=== PATIENT | male | born 1950 | race Caucasian/White ===

== ENCOUNTER 2017-07-22 10:08 | Outpatient (CLI) | payer MEDICARE ==
[2017-07-22 10:40] LABS: Bilirubin Negative (Negative); Blood, Urine Negative (Negative); Glucose, Urine (Dipstick) Negative (Negative); Ketone, Urine Negative (Negative); Nitrite Negative (Negative); Protein, Urine (Dipstick) Negative (Neg-Trace)
[2017-07-22 10:45] LABS: Bacteria/HPF None Seen HPF (None Seen); Hyaline Casts/LPF 0-3 HYALINE CAST LPF (0-3 Hyaline); RBC/HPF 0-3 HPF (0-3); Squamous Epithelial None Seen HPF (0-3); WBC/HPF 0-3 HPF (0-3)
[2017-07-22 11:00] LABS: Anion Gap 10 mmol/L (10-20); BUN (Urea Nitrogen) 17 mg/dL (8.4-25.7); Calc. Creatinine Clearance 0 mL/min (70-130); Calcium 9.6 mg/dL (7.8-10.44); Carbon Dioxide 29 mmol/L (23-31); Chloride 106 mmol/L (98-107); Estimated GFR-MDRD 90
[2017-07-22] MEDS ORDERED: Iopamidol 370 76% 100 ML VIAL ONE (16:31)
--- NOTE | 2017-07-22 19:42 | CT ---
CT ABDOMEN AND PELVIS WITH AND WITHOUT CONTRAST: Technique: Multiple axial tomograms were obtained through the abdomen and pelvis pre and post IV con trast. Post contrast images were obtained in a portal venous phase and delayed venous phase followin g a urographic protocol. History: Follow up removal of bladder tumor via cysto. Neoplasm of bladder. Comparison: 01-21-17 FINDINGS: Lung bases are clear. Liver, spleen, and pancreas appear unremarkable. Adrenal glands appear normal. 5.5 cm cystic lesion from inferior pole of the left kidney is again seen and is unchanged. Kidneys s how symmetric function and enhancement. No evidence of hydronephrosis. No urinary tract calculus. Ur eters unremarkable. The bladder is contracted and not well evaluated. On the delayed sequence there is some contrast in the bladder. No filling defects seen. Mild prostatic indentation on the floor of the bladder. Small bowel loops appear normal. The aorta is normal caliber. No adenopathy. Degenerative changes in the spine. Small focal sclerotic lesion in the left superior acetabulum is stable. IMPRESSION: 1. Left renal cyst is stable. 2. CT abdomen and pelvis otherwise unremarkable with no interval change from prior exam. POS: BRIAN
== END 2017-07-22 10:09 | disposition home or self-care (01) ==
LOC: CT 10:08
PROVIDERS: ATTEND Urology
DX: Z12.5 Encounter for screening for malignant neoplasm of prostate (principal); C67.0 Malignant neoplasm of trigone of bladder; N28.1 Cyst of kidney, acquired
CPT/HCPCS: 74178; 80048; 81001; 88112; 88121; G0103; 36415

== ENCOUNTER 2017-10-12 16:17 | Inpatient (IN) | payer MEDICARE ==
[2017-10-12 16:47] LABS: #Lymphocytes 1.6 thou/uL (1.20-3.40); #Monocytes 0.9 thou/uL (0.11-0.59); #Neutrophils 13.8 thou/uL (1.40-6.50); %Basophils 0.1 % (0.0-1.0); %Eosinophils 0.2 % (0.0-10.0); %Lymphocytes 9.6 % (21.0-51.0); %Monocytes 5.4 % (0.0-10.0); %Neutrophils 84.8 % (42.0-75.0); Hemoglobin 15.8 g/dL (14.0-18.0); Mean Corpuscular Hemoglobin 32.3 pg (27.0-31.0); Mean Corpuscular Volume 95.2 fl (80.0-94.0); Mean Platelet Volume 7.7 fL (7.4-10.4); Platelet Count 238 thou/uL (130-400); Red Blood Cell (RBC) Count 4.89 mill/uL (4.70-6.10); White Blood Cell (WBC) Count 16.3 thou/uL (4.8-10.8)
[2017-10-12 17:09] LABS: Bilirubin Negative (Negative); Blood, Urine Negative (Negative); Clarity CLEAR (Clear); Glucose, Urine (Dipstick) Negative (Negative); Leukocyte Negative (Negative); Nitrite Negative (Negative); Protein, Urine (Dipstick) 30 mg/dL (Neg-Trace); Specific Gravity, Urine 1.018 (1.002-1.036); pH, Urine 7.5 (5.0-9.0)
[2017-10-12 17:09] LABS: ALT (SGPT) 26 U/L (8-55); AST (SGOT) 18 U/L (5-34); Albumin 4.6 g/dL (3.4-4.8); Alkaline Phosphatase 70 U/L (40-150); Anion Gap 13 mmol/L (10-20); BUN (Urea Nitrogen) 12 mg/dL (8.4-25.7); Bilirubin, Total 1.1 mg/dL (0.2-1.2); Calc. Creatinine Clearance 0 mL/min (70-130); Calcium 9.9 mg/dL (7.8-10.44); Carbon Dioxide 27 mmol/L (23-31); Chloride 100 mmol/L (98-107); Estimated GFR-MDRD 71; Globulin 3.2 g/dL (2.4-3.5); Glucose 122 mg/dL (80-115); Potassium 3.7 mmol/L (3.5-5.1); Protein, Total 7.8 g/dL (5.8-8.1); Sodium 136 mmol/L (136-145)
[2017-10-12 17:11] LABS: Bacteria/HPF None Seen HPF (None Seen); Hyaline Casts/LPF 0-3 HYALINE CAST LPF (0-3 Hyaline); RBC/HPF 0-3 HPF (0-3); Squamous Epithelial None Seen HPF (0-3); WBC/HPF 0-3 HPF (0-3)
[2017-10-13] MEDS ORDERED: Dextrose 5% in Water 1,000 ML IV PRN (00:19)
[2017-10-13] MEDS ORDERED: Dextrose 50% Abboject 50 ML SYRINGE SLOW IVP PRN (00:19)
[2017-10-13] MEDS ORDERED: hydrALAZINE 20 MG/ML VIAL SLOW IVP PRN (00:19)
[2017-10-13] MEDS ORDERED: Ondansetron HCl/PF 4 MG/2 ML Vial IVP PRN ×2 (00:19→00:53)
[2017-10-13] MEDS ORDERED: Promethazine HCl 25 MG/ML VIAL IM PRN ×2 (00:19→00:53)
[2017-10-13] MEDS ORDERED: Morphine 4 MG/ML VIAL SLOW IVP PRN (00:19)
[2017-10-13] MEDS ORDERED: traMADol HCl 50 MG TAB PO PRN ×2 (00:23)
[2017-10-13] MEDS ORDERED: Amlodipine 10 MG TAB PO SCH (00:30)
[2017-10-13] MEDS ORDERED: Ketorolac Tromethamine 30 MG/ML VIAL IVP SCH (00:45)
[2017-10-13] MEDS ORDERED: Promethazine HCl 25 MG/ML VIAL SLOW IVP PRN (00:53)
--- NOTE | 2017-10-13 01:23 | OP ---
DATE OF OPERATION: 10/12/2017 PREOPERATIVE DIAGNOSIS: Acute appendicitis. POSTOPERATIVE DIAGNOSIS: Acute gangrenous appendicitis with perforation and periappendiceal abscess. SURGERY PERFORMED: Laparoscopic appendectomy and drainage of periappendiceal abscess. SURGEON: Inder Alcantar DO ANESTHESIA: General endotracheal. ESTIMATED BLOOD LOSS: 20 mL. FLUIDS GIVEN: 1000 mL crystalloids. SPONGE AND INSTRUMENT COUNT: Certified as correct x2. COMPLICATIONS: None apparent at the time of operation. INDICATIONS FOR OPERATION: This is a 67-year-old man presented with 2-day history of abdom inal pain. Clinical and radiographic examination was consistent with acute appendicitis, for which t he patient was brought to the operating room for appendectomy. Findings are consistent with acute gangrenous retrocecal appendicitis blown off at the base. There i s appendicolith at the base of the appendix. DESCRIPTION OF OPERATION: Informed consent was obtained from the patient who was brought to the oper ating room and placed in supine position. Following general anesthesia, abdomen was sterilely preppe d and draped in the usual fashion. The skin below the umbilicus was infiltrated with 0.25% Marcaine with epinephrine. A small curvilinear infraumbilical incision was made using an 11 scalpel. Umbilic al stalk was grasped with an Sanjay and elevated. Veress needle was inserted through the incision an d placed in the peritoneal cavity through which the abdomen was insufflated with 3 liters of CO2 gas. Intraabdominal pressure noted at 2 mmHg. Following abdominal insufflation, Veress needle was remov ed and a 5-mm trocar was inserted through the incision and placed in the peritoneal cavity using the Visiport under laparoscopy. Laparoscopy confirmed proper placement of the port and no injuries to un derlying structures. Additional laparoscopy revealed the right lower quadrant completely encased by omental adhesions. Under direct laparoscopy, a 5-mm suprapubic and 12-mm left lower quadrant ports w ere placed after the overlying skin was infiltrated with 0.25% Marcaine with epinephrine and appropri ate incisions made. The patient was placed in a Trendelenburg position, rotated to his left. I introduced the [place] d issector with cautery to take down omental adhesions from the right lower quadrant. Using a Prestige grasper, additional omental adhesions were bluntly taken down off the right lateral gutter to expose the retrocecal appendix that is completely blown off the base. Two fecaliths were lying adjacent to the appendiceal stump. There is periappendiceal abscess, which was evacuated with suction. I then introduced the Endo [place] forceps through the suprapubic port site grasping the appendix, which was elevated. I used the LigaSure device to serially divide the mesoappendix. I was then able to grasp the appendiceal stump, dividing this at the appendicocecal junction using Endo-ROMANA. The gangrenous appendix was delivered out of the abdominal cavity using an EndoCatch. The operative site was copiously irrigated clear with saline solution noting good hemostasis in place. Finding no other pathology, laparoscopy was terminated. Fascia of the left lower quadrant port site was closed using 0 Vicryl suture and Endo closure device under laparoscopy. The abdomen was desufflated. All p orts and instruments removed and accounted for. Skin incisions were closed using 4-0 Monocryl suture in subcuticular fashion. Dermabond was applied over the incisions. The patient tolerated the opera tion without any apparent complications and was returned to the recovery room in satisfactory conditi on.
--- NOTE | 2017-10-13 01:28 | HP ---
DATE OF ADMISSION: 10/12/2017 HISTORY OF PRESENT ILLNESS: This is a 67-year-old man who presented to [facility] in [facility] with insidious onset periumbilical abdominal pain, which started two days ago. The pa in is now right lower quadrant. The patient reports multiple episodes of nausea, but no palomo emesis . He denies any diarrhea. He endorses fever, maximum temperature today was 101, this morning. He i s currently anorexic. PAST MEDICAL HISTORY: Significant for bladder carcinoma, essential hypertension, benign prostatic hy pertrophy. SURGICAL HISTORY: Pertinent for transurethral bladder resection. SOCIAL HISTORY: He is , lives at home with his . He denies any cigarette smoking, ethano l or illicit drug abuse. FAMILY HISTORY: Noncontributory for this patient's age. PREHOSPITAL MEDICATIONS: Include meloxicam, amlodipine 10 mg p.o. daily, chlorothiazide 250 mg p.o. daily, gabapentin 900 mg p.o. b.i.d., aspirin 81 mg p.o. daily, Flomax 0.4 mg p.o. daily. ALLERGIES: The patient denies any known drug allergies. REVIEW OF SYSTEMS: Ten point review of systems is essentially unremarkable except for as stated in p ast medical history and chief complaint. PHYSICAL EXAMINATION: GENERAL: This reveals 67-year-old normally developed man, who is otherwise coherent and interactive and appears stated age. The patient is alert and oriented x3, appears to be in no acute distress at the time of my evaluation. VITAL SIGNS: Include blood pressure 141/70, pulse 88, respiration rate 18, temperature 98.5 degrees Fahrenheit. Oxygen saturation 95% on room air. HEENT: Reveals normocephalic and atraumatic. Pupils equal, round, and reactive to light and accommo dation. He has no jugular venous distention noted. HEART: Reveals regular rate and rhythm, no murmurs or gallops auscultated. LUNGS: Clear to auscultation bilaterally. Breathing is regular and unlabored. ABDOMEN: Soft and moderately obese. He has right lower quadrant tenderness at McBurney's. He has a positive Rovsing sign. Liver and spleen are nonpalpable below costal margins. EXTREMITIES: Reveals 2+ radial and pedal pulses bilaterally. No ankle edema is present. NEUROLOGIC: Cranial nerves II-XII grossly intact bilaterally. No focal deficits present. PERTINENT LABORATORY FINDINGS TODAY: Includes CBC with 16,300 white blood cells, hemoglobin 15.8, he matocrit is 46.6, platelet count 238,000. Metabolic profile: Sodium 136, potassium 3.7, chloride is 100, bicarbonate 27, BUN 12, creatinine is 1.04, glucose 122, AST and ALT normal at 18 and 26 respectively. Urinalysis was essentially unremar kable. I have personally reviewed CT scan of the abdomen and pelvis, which is remarkable for dilated appendix with periappendiceal fat stranding and appendicolith. There is minimum free fluid noted. No pneumoperitoneum is evident. IMPRESSION: Acute appendicitis. PLAN: Laparoscopic appendectomy. I have advised the patient of the above findings and plan. This i nformation was given to the patient in the presence of his and 2 adult daughters as well as his nurse. I have informed the patient of the risks and benefits of the proposed surgery. Risks include , but not limited to bleeding, infection, injury to bowel or surrounding structures. The patient ind icates understanding of information I have provided him today. I have answered his questions. He gaines s given consent for this admission and surgical intervention.
[2017-10-13] MEDS: Sodium Chloride 0.9% 1,000 ML IV SCH ×2 (02:10→12:42)
[2017-10-13 02:22] VITALS: BMI 33.7
[2017-10-13] MEDS: Piperacillin/Tazobactam 3.375 GM in Sodium Chloride 0.9% 100 ML IVPB SCH ×2 (03:18→10:05)
[2017-10-13] MEDS: Acetaminophen 500 MG TAB PO SCH ×2 (06:58→13:00)
[2017-10-13] MEDS: Ketorolac Tromethamine 30 MG/ML VIAL IVP SCH ×2 (06:58→13:00)
[2017-10-13] MEDS ORDERED: Famotidine/PF 20 mg/2ml Vial SLOW IVP SCH (09:00)
[2017-10-13] MEDS ORDERED: Enoxaparin Sodium 40 MG/0.4 ML SYRINGE SC SCH (09:00)
[2017-10-13] MEDS ORDERED: Famotidine 20 MG TAB PO SCH (09:00)
[2017-10-13 13:33] VITALS: BP 114/72; TEMP 97.3
[2017-10-13] MEDS ORDERED: Amoxicillin/Potassium Clav 875 MG TAB PO SCH (21:00)
--- NOTE | 2017-10-14 00:10 | DIS ---
DATE OF ADMISSION: 10/13/2017 DATE OF DISCHARGE: 10/13/2017 ADMITTING AND DISCHARGE PHYSICIAN: Dr. Inder Alcantar. ADMITTING AND DISCHARGE DIAGNOSIS: Acute appendicitis. OPERATIONS PERFORMED: Laparoscopic appendectomy on 10/12/2017 by Katharine. Please see separate dictati on for operative report. HISTORY AND HOSPITAL COURSE: A 67-year-old man presented with right lower quadrant abdominal pain. Clinical and radiographic examination was consistent with acute appendicitis, for which patient under went an uneventful laparoscopic appendectomy. Following surgery, the patient was admitted to the [facility], where he had an uneventful stay. Postop day #1 today, he ambulates with minimum difficulty. His pain is adequately controlled on oral analgesics. He is tolerating diet, having normal bowel and urinary function. Incisional scars lolis in intact, clean, and dry. He has no gross peritoneal signs on examination. He has remained hemodyn amically stable and afebrile through this hospitalization. The patient will be discharged home today with the following instructions: 1. He sees me in the Surgery Clinic in 2 weeks. 2. He has given a prescription for tramadol 50 mg #20 to be taken 1-2 p.o. q.6 hours p.r.n. pain may alternate this with extra-strength Tylenol 1000 mg p.o. q.6 hours p.r.n. pain. 3. He is instructed to avoid weightlifting in excess of 20 pounds until he has been released by me. 4. He has given a prescription for Augmentin 875 mg #8 to be taken 1 p.o. b.i.d. x4 days. 5. Patient indicates understanding of information given. I have answered his questions. 6. He has expressed deep gratitude for the care rendered to him during this hospitalization and surg cristian.
== END 2017-10-13 16:15 | disposition home or self-care (01) | DRG 340 ==
LOC: ERS 16:17 → SURG A 10-13 00:19
PROVIDERS: ADMIT Surgery; ATTEND Surgery
PROC: 0DTJ4ZZ Resection of Appendix, Percutaneous Endoscopic Approach (ICD-10-PCS; principal; 2017-10-12)
PROC: 0D9J4ZZ Drainage of Appendix, Percutaneous Endoscopic Approach (ICD-10-PCS; 2017-10-12)
DX: K35.3 Acute appendicitis with localized peritonitis (principal); I10 Essential (primary) hypertension; R63.0 Anorexia; Z85.51 Personal history of malignant neoplasm of bladder; K38.1 Appendicular concretions
CPT/HCPCS: 36415; 74022; 74177; 80053; 81003; 81015; 85025; 88304; 96361; 96365; 96375; 96376; J1100; J1650; J1885; J2001; J2270; J2405; J2543; J2704; J3010; J7050

== ENCOUNTER 2017-10-14 12:36 | Emergency (ER) | payer MEDICARE ==
[2017-10-14 13:59] LABS: #Basophils 0.1 thou/uL (0.0-0.2); #Lymphocytes 1.9 thou/uL (1.20-3.40); #Monocytes 0.9 thou/uL (0.11-0.59); %Basophils 0.3 % (0.0-1.0); %Lymphocytes 10.1 % (21.0-51.0); %Monocytes 4.9 % (0.0-10.0); %Neutrophils 84.7 % (42.0-75.0); Hemoglobin 14.6 g/dL (14.0-18.0); Mean Corpuscular Hemoglobin 31.2 pg (27.0-31.0); Mean Corpuscular Volume 91.7 fl (80.0-94.0); Mean Platelet Volume 8.5 fL (7.4-10.4); Platelet Count 235 thou/uL (130-400); RBC Distribution Width 11.4 % (11.5-14.5); Red Blood Cell (RBC) Count 4.68 mill/uL (4.70-6.10); White Blood Cell (WBC) Count 18.9 thou/uL (4.8-10.8)
--- NOTE | 2017-10-14 14:08 | RAD ---
FRONTAL RADIOGRAPH CHEST UPRIGHT AND FRONTAL RADIOGRAPHS OF ABDOMEN: Date: 10-14-17 Comparison: None. History: Recent appendectomy on Saturday. Constipation and pain. FINDINGS: Frontal radiograph chest as well as supine and upright imaging of abdomen/pelvis provided. Frontal radiograph chest demonstrates no pneumothorax, pleural fluid, focal consolidation or alveolar edema. Heart and mediastinal contours are within normal limits. Upright imaging demonstrates no free intraperitoneal air. There are air fluid levels within the colon which appear somewhat distended. There appears to be resi dual hyperdense material within the colon including the ascending colon and the descending colon whic h could signify enema material or possibly previously ingested oral contrast media. There are fluid filled and gas filled prominent small bowel loops as well, with air fluid levels on u pright imaging. Dilated gas filled loops of small bowel within the mid left abdomen measure up to 4.7 cm. IMPRESSION: There is distention of large and small bowel which suggest ileus. Developing small bowel obstruction cannot be fully excluded but is felt less likely. There is prominent, somewhat high density material within the ascending colon, suggesting dense stool mixed with hyperdense material which may be on the basis of enema material or previously ingested contrast media. Follow up imaging is suggested. POS: BRIAN
== END 2017-10-14 14:25 | disposition home or self-care (01) ==
LOC: SCSER 12:36
DX: K59.00 Constipation, unspecified (principal); G89.29 Other chronic pain; I10 Essential (primary) hypertension
CPT/HCPCS: 36415; 74022; 85025

== ENCOUNTER 2017-10-19 09:51 | Inpatient (IN) | payer MEDICARE ==
[2017-10-19 10:24] LABS: #Basophils 0.1 thou/uL (0.0-0.2); #Eosinphils 0.1 thou/uL (0.0-0.7); #Lymphocytes 1.5 thou/uL (1.20-3.40); #Monocytes 1.2 thou/uL (0.11-0.59); #Neutrophils 11.8 thou/uL (1.40-6.50); %Basophils 0.6 % (0.0-1.0); %Eosinophils 0.7 % (0.0-10.0); %Lymphocytes 10.4 % (21.0-51.0); %Neutrophils 80.4 % (42.0-75.0); Hemoglobin 14.1 g/dL (14.0-18.0); Mean Corpuscular HGB CONC 34.6 g/dL (32.0-36.0); Mean Corpuscular Hemoglobin 31.1 pg (27.0-31.0); Mean Corpuscular Volume 89.8 fl (80.0-94.0); Mean Platelet Volume 6.4 fL (7.4-10.4); Platelet Count 374 thou/uL (130-400); RBC Distribution Width 11.1 % (11.5-14.5); Red Blood Cell (RBC) Count 4.53 mill/uL (4.70-6.10); White Blood Cell (WBC) Count 14.6 thou/uL (4.8-10.8)
[2017-10-19 10:35] LABS: ALT (SGPT) 43 U/L (8-55); AST (SGOT) 25 U/L (5-34); Albumin 3.4 g/dL (3.4-4.8); Alkaline Phosphatase 76 U/L (40-150); Anion Gap 16 mmol/L (10-20); BUN (Urea Nitrogen) 13 mg/dL (8.4-25.7); Bilirubin, Total 0.6 mg/dL (0.2-1.2); Calc. Creatinine Clearance 0 mL/min (70-130); Calcium 9.2 mg/dL (7.8-10.44); Carbon Dioxide 23 mmol/L (23-31); Chloride 103 mmol/L (98-107); Estimated GFR-MDRD 85; Globulin 3.3 g/dL (2.4-3.5); Glucose 111 mg/dL (80-115); Lipase 19 U/L (8-78); Potassium 3.9 mmol/L (3.5-5.1); Protein, Total 6.7 g/dL (5.8-8.1); Sodium 138 mmol/L (136-145)
[2017-10-19 11:09] LABS: Bilirubin Negative (Negative); Blood, Urine Negative (Negative); Clarity Clear (Clear); Glucose, Urine (Dipstick) Negative (Negative); Leukocyte Negative (Negative); Nitrite Negative (Negative); Protein, Urine (Dipstick) Negative (Neg-Trace); Urobilinogen 0.2 mg/dL (0.2-1.0); pH, Urine 5.5 (5.0-9.0)
--- NOTE | 2017-10-19 11:13 | CT ---
CT OF ABDOMEN AND PELVIS: Date: 10/19/17 COMPARISON: 10/12/17. HISTORY: Recent surgery for perforated appendicitis, constipation. TECHNIQUE: Serial axial CT imaging at 5 mm intervals from the lung bases through the pubic symphysis with IV con trast. Coronal reformatted imaging obtained. FINDINGS: The lack of oral contrast limits assessment of both bowel. There is no free intraperitoneal air. Imaged lung bases appear grossly unremarkable. The liver, spleen, pancreas, and adrenal glands appear unremarkable. There is a small hiatal hernia n oted. There is an exophytic cyst emanating from the lower pole of the left kidney measuring 5.4 cm. Fat-containing inguinal hernias are present, right larger than left. Small volume free fluid is noted in the pelvis posterior to the urinary bladder and superior to the s eminal vesicles, increased in volume when compared to the prior exam. Small volume fluid is seen in t he pelvis bilaterally adjacent to the sigmoid colon, new. There is sigmoid diverticulosis with no evidence for diverticulitis. There is a suture line in the right lower quadrant, best seen on axial image 58, consistent with rece nt appendectomy. There are a few thick-walled small bowel loops in the right lower quadrant, likely secondary to infla mmatory change. There is a fluid collection at the postoperative site, with adjacent thick-walled small bowel. This p ostoperative fluid collection measures approximately 6.2 cm in AP dimension x 4.6 cm in transverse di mension x approximately 4.1 cm in craniocaudal dimension. It demonstrates posterior and superior exte nsion to the level of the postoperative site, where it demonstrates a more ill-defined peripheral con tour. It contains no internal gas and is thus a nonspecific postoperative fluid collection. Centrally , it is hypodense. In the proper clinical setting, the primary consideration is abscess. There are scattered atherosclerotic calcifications of the abdominal aorta and its branches. No lymphadenopathy is noted. There is prominent multilevel degenerative change seen within the lumbar spine with multilevel disc s pace narrowing and degenerative end plate change, as well as osteophyte formation and vacuum disc for mation. IMPRESSION: 1. There is a nonspecific fluid collection in the postoperative bed measuring up to 4.5 x 6.2 cm. Pr imary consideration is postoperative abscess in the proper clinical setting. 2. No evidence for bowel obstruction or free intraperitoneal air. POS: BRIAN
[2017-10-19] MEDS ORDERED: metroNIDAZOLE 500 MG/100 ML BAG ONE (12:06)
[2017-10-19] MEDS ORDERED: Iopamidol 370 76% 100 ML VIAL ONE (12:25)
[2017-10-19] MEDS ORDERED: Ondansetron ODT 4 MG TAB SL PRN (14:01)
[2017-10-19] MEDS ORDERED: Ondansetron HCl/PF 4 MG/2 ML Vial IVP PRN ×2 (14:01→18:33)
[2017-10-19] MEDS ORDERED: Sodium Chloride 0.9% 1,000 ML IV SCH (14:01)
--- NOTE | 2017-10-19 17:11 | HP ---
DATE OF ADMISSION: 10/19/2017 HISTORY OF PRESENT ILLNESS: Mr. Bush is readmitted from [facility]. He is 1 week status post laparoscopic appendectomy for perforated appendicitis by Dr. Alcantar. Borderline temperat ures at home, but more persistent right lower quadrant pain and cramping across his lower abdomen. H jos was sent home on Augmentin, which he finished yesterday. He is also noticing some loose stools. N o significant nausea or vomiting, pain in the right lower abdomen is described as 6/10, more on the r ight than the left. No dysuria. PAST MEDICAL HISTORY: Bladder cancer. PAST SURGICAL HISTORY: Laparoscopic appendectomy, cystoscopy, bladder tumor ablation and removal. MEDICINES TAKEN DAILY: Norvasc, gabapentin, Diuril, Mobic, Flomax. ALLERGIES: He denies. REVIEW OF SYSTEMS: Otherwise, negative. PHYSICAL EXAMINATION: HEENT: Sclerae are anicteric. Oropharynx clear. NECK: No lymphadenopathy. CHEST: Clear. HEART: Regular rate and rhythm. ABDOMEN: Soft, tender right lower quadrant with no guarding or rebound. EXTREMITIES: No ischemia or edema to extremities. LABORATORY DATA: White blood cell count is 14, hemoglobin 14, creatinine 0.89. Urine clear. FINDINGS: CT scan shows right lower quadrant abscess. ASSESSMENT: Postoperative right lower quadrant abscess. PLAN: We will arrange for pursestring of this abscess in the morning and cover with Levaquin and Fla gyl. Check stool for C. diff.
[2017-10-19] MEDS ORDERED: Dextrose 5% in Water 1,000 ML IV PRN (18:33)
[2017-10-19] MEDS ORDERED: hydrALAZINE 20 MG/ML VIAL SLOW IVP PRN (18:33)
[2017-10-19] MEDS ORDERED: Promethazine HCl 25 MG/ML VIAL IM PRN (18:33)
[2017-10-19] MEDS ORDERED: Morphine 2 MG/ML SYRINGE SLOW IVP PRN (18:33)
[2017-10-19] MEDS ORDERED: HYDROcodone/Acetaminophen 10/325 mg Tablet PO PRN (18:33)
[2017-10-19] MEDS ORDERED: Morphine 4 MG/ML Carpuject SLOW IVP PRN (18:33)
[2017-10-19] MEDS ORDERED: Dextrose 50% Abboject 50 ML SYRINGE SLOW IVP PRN (18:33)
[2017-10-19 19:04] LABS: INR-International Normal Ratio 1.2; Prothrombin Time 15.1 SEC (12.0-14.7)
[2017-10-19 19:55] VITALS: BMI 33.9
[2017-10-19] MEDS ORDERED: metroNIDAZOLE 500 MG in Premix Bag 1 BAG IVPB SCH (20:00)
[2017-10-19] MEDS: metroNIDAZOLE 500 MG in Premix Bag 1 BAG IVPB SCH (23:40)
[2017-10-20] MEDS: D5 1/2 NS w/20 mEq KCL 1,000 ML IV SCH ×2 (00:01→08:22)
[2017-10-20] MEDS: Famotidine 20 MG TAB PO SCH ×3 (00:02→21:29)
[2017-10-20] MEDS: Famotidine/PF 20 mg/2ml Vial SLOW IVP SCH ×3 (00:02→22:14)
[2017-10-20] MEDS: metroNIDAZOLE 500 MG in Premix Bag 1 BAG IVPB SCH ×3 (06:20→21:28)
[2017-10-20] MEDS: HYDROcodone/Acetaminophen 10/325 mg Tablet PO PRN ×2 (06:26→21:29)
[2017-10-20] MEDS ORDERED: Sodium Bicarbonate 2.4 MEQ/5 ML ONE (08:34)
[2017-10-20] MEDS ORDERED: Midazolam HCl 2 mg/2 ml Vial ONE (08:34)
[2017-10-20] MEDS ORDERED: Fentanyl 100 MCG/2 ML VIAL ONE (08:35)
[2017-10-20 10:57] LABS: BF Color Yellow; Clarity Cloudy/Turbid (Clear)
[2017-10-20 10:59] LABS: RBC Background Count 0.002
[2017-10-20 11:02] LABS: RBC Count-Automated 371000 /cumm; WBC/NonHematic-Auto 161000 /cumm
--- NOTE | 2017-10-20 11:07 | PDOC.GSPN ---
Surgery Progress Note: Subj - Subjective Narrative: still feels bloated. had ct drainage abscess this am. He is hungry Surgery Progress Note: Obj - Vital signs Vital signs: Vital Signs - Most Recent Temp Pulse Resp BP Pulse Ox 98.3 F 70 18 165/80 H 95 10/20/17 10:00 10/20/17 10:00 10/20/17 10:00 10/20/17 10:00 10/20/17 08:05 - Physical Exam General: no distress Abdomen: soft, other (mildly distended and tender, no guarding) Surgery Progress Note: Results - Labs Result Diagrams: 10/19/17 10:15 10/19/17 10:15 Lab results: Laboratory Results WBC 14.6 thou/uL (4.8-10.8) H 10/19/17 10:15 RBC 4.53 mill/uL (4.70-6.10) L 10/19/17 10:15 Hgb 14.1 g/dL (14.0-18.0) 10/19/17 10:15 Hct 40.7 % (42.0-52.0) L 10/19/17 10:15 MCV 89.8 fl (80.0-94.0) 10/19/17 10:15 MCH 31.1 pg (27.0-31.0) H 10/19/17 10:15 MCHC 34.6 g/dL (32.0-36.0) 10/19/17 10:15 RDW 11.1 % (11.5-14.5) L 10/19/17 10:15 Plt Count 374 thou/uL (130-400) 10/19/17 10:15 MPV 6.4 fL (7.4-10.4) L 10/19/17 10:15 Neutrophils % 80.4 % (42.0-75.0) H 10/19/17 10:15 Lymphocytes % 10.4 % (21.0-51.0) L 10/19/17 10:15 Monocytes % 8.0 % (0.0-10.0) 10/19/17 10:15 Eosinophils % 0.7 % (0.0-10.0) 10/19/17 10:15 Basophils % 0.6 % (0.0-1.0) 10/19/17 10:15 Neutrophils # 11.8 thou/uL (1.40-6.50) H 10/19/17 10:15 Lymphocytes # 1.5 thou/uL (1.20-3.40) 10/19/17 10:15 Monocytes # 1.2 thou/uL (0.11-0.59) H 10/19/17 10:15 Eosinophils # 0.1 thou/uL (0.0-0.7) 10/19/17 10:15 Basophils # 0.1 thou/uL (0.0-0.2) 10/19/17 10:15 PT 15.1 SEC (12.0-14.7) H 10/19/17 18:49 INR 1.2 10/19/17 18:49 APTT 32.0 SEC (22.9-36.1) 10/19/17 18:49 Sodium 138 mmol/L (136-145) 10/19/17 10:15 Potassium 3.9 mmol/L (3.5-5.1) 10/19/17 10:15 Chloride 103 mmol/L (98-107) 10/19/17 10:15 Carbon Dioxide 23 mmol/L (23-31) 10/19/17 10:15 Anion Gap 16 mmol/L (10-20) 10/19/17 10:15 BUN 13 mg/dL (8.4-25.7) 10/19/17 10:15 Creatinine 0.89 mg/dL (0.7-1.3) 10/19/17 10:15 Estimated GFR (MDRD) 85 10/19/17 10:15 Glucose 111 mg/dL (80-115) 10/19/17 10:15 Calcium 9.2 mg/dL (7.8-10.44) 10/19/17 10:15 Total Bilirubin 0.6 mg/dL (0.2-1.2) 10/19/17 10:15 AST 25 U/L (5-34) 10/19/17 10:15 ALT 43 U/L (8-55) 10/19/17 10:15 Alkaline Phosphatase 76 U/L (40-150) 10/19/17 10:15 Serum Total Protein 6.7 g/dL (5.8-8.1) 10/19/17 10:15 Albumin 3.4 g/dL (3.4-4.8) 10/19/17 10:15 Globulin 3.3 g/dL (2.4-3.5) 10/19/17 10:15 Albumin/Globulin Ratio 1.0 g/dL (1.2-2.2) L 10/19/17 10:15 Lipase 19 U/L (8-78) 10/19/17 10:15 Urine Color Yellow (Yellow) 10/19/17 11:00 Urine Clarity Clear (Clear) 10/19/17 11:00 Urine pH 5.5 (5.0-9.0) 10/19/17 11:00 Ur Specific [place] 1.010 (1.005-1.030) 10/19/17 11:00 Urine Protein Negative mg/dL (Neg-Trace) 10/19/17 11:00 Urine Glucose (UA) Negative mg/dL (Negative) 10/19/17 11:00 Urine Ketones Negative mg/dL (Negative) 10/19/17 11:00 Urine Blood Negative (Negative) 10/19/17 11:00 Urine Nitrite Negative (Negative) 10/19/17 11:00 Urine Bilirubin Negative (Negative) 10/19/17 11:00 Urine Urobilinogen 0.2 mg/dL (0.2-1.0) 10/19/17 11:00 Ur Leukocyte Esterase Negative (Negative) 10/19/17 11:00 Fluid Source 10/20/17 09:25 Fluid Color Yellow 10/20/17 09:25 Fluid Clarity Cloudy/Turbid (Clear) H 10/20/17 09:25 Fluid WBC [id number] /cumm 10/20/17 09:25 Fluid RBC [id number] /cumm 10/20/17 09:25 Fluid Comment Note: 10/20/17 09:25 Surgery Progress Note: A/P - Problem (1) Postoperative abscess Current Visit: Yes Code(s): T81.4XXA - INFECTION FOLLOWING A PROCEDURE, INITIAL ENCOUNTER Status: Acute Assessment and Plan: s/p drainage. Home tomorrow if doing well. await stool for cdiff. continue levaquin/flagyl
[2017-10-20] MEDS ORDERED: Saccharomyces boulardii 250 MG CAP PO SCH (11:15)
[2017-10-20] MEDS: Levofloxacin 500 mg/D5W 100 ml Premix Bag IVPB SCH (11:22)
--- NOTE | 2017-10-20 11:46 | CT ---
RIGHT LOWER QUADRANT ABSCESS DRAINAGE WITH CT GUIDANCE: Date: 10/20/17 HISTORY: Recent appendectomy with right lower quadrant fluid collection suspicious for abscess. FINDINGS: Informed consent for CT guided abscess drainage of the right lower quadrant obtained prior to the pro cedure. Partial CT examination of the right lower quadrant for preprocedural planning reidentifies a fluid co llection in the right lower quadrant inferior to the cecum and superficial to thick-walled and inflam ed distal small bowel loops. The fluid collection measures 5.8 x 4.0 cm. The skin overlying this region was prepped and draped in the normal sterile fashion and anesthetized with 1% buffered lidocaine. With intermittent CT guidance, a 5 [place] Yueh catheter was advanced into the collection and aspirati on yields purulent material. Through the Yueh catheter, an Amplatz wire is advanced. The Yueh cathete r is removed and an 8 [place] dilator is utilized to dilate the tract. Dilator removed and an 8 [place] drainage catheter advanced. The pigtail was formed within the collection and the catheter was locked in place. Subsequently, further aspiration yields thick, purulent material. Approximately 65-70 mL o f pus removed. Sample sent to laboratory for assessment. Patient tolerated the procedure well. The patient was continuously monitored during the procedure by a member of the division of radiology nursing staff. The patient received 100 mcg of Fentanyl and 1 mg of Versed during the procedure. The catheter should be flushed every 8 hours with 10 mL of sterile normal saline. IMPRESSION: Successful CT guided abscess drainage. POS: HAYDE
[2017-10-20 12:26] LABS: BF Segmented Neutrophils 16 %; Cell Count Non Hematic 80 %; Lymphocytes 4 %
[2017-10-20] MEDS ORDERED: Acetaminophen 325 MG TAB PO SCH (17:45)
[2017-10-20] MEDS: Gabapentin 300 MG CAP PO SCH (21:30)
[2017-10-20] MEDS: Meloxicam 7.5 MG TAB PO SCH (21:31)
[2017-10-21] MEDS: Acetaminophen 325 MG TAB PO SCH ×2 (02:09→02:23)
[2017-10-21 05:16] LABS: Anion Gap 13 mmol/L (10-20); BUN (Urea Nitrogen) 16 mg/dL (8.4-25.7); Calc. Creatinine Clearance 115 mL/min (70-130); Calcium 7.8 mg/dL (7.8-10.44); Carbon Dioxide 26 mmol/L (23-31); Chloride 101 mmol/L (98-107); Estimated GFR-MDRD 75; Glucose 96 mg/dL (80-115); Potassium 3.6 mmol/L (3.5-5.1); Sodium 136 mmol/L (136-145)
[2017-10-21 05:28] LABS: Hemoglobin 12.5 g/dL (14.0-18.0); Lymphocytes 17 % (21-51); MDiff Complete? YES; Mean Corpuscular HGB CONC 32.7 g/dL (32.0-36.0); Mean Corpuscular Hemoglobin 31.6 pg (27.0-31.0); Mean Corpuscular Volume 96.5 fl (80.0-94.0); Mean Platelet Volume 6.6 fL (7.4-10.4); Metamyelocyte 1 % (0-0); Monocytes 7 % (0-10); Myelocyte 1 % (0-0); Neutrophil 74 % (42-75); PLT Morphology Comment Appears Adequate; Platelet Count 347 thou/uL (130-400); RBC Distribution Width 11.7 % (11.5-14.5); Red Blood Cell (RBC) Count 3.94 mill/uL (4.70-6.10); White Blood Cell (WBC) Count 21.3 thou/uL (4.8-10.8)
[2017-10-21] MEDS: metroNIDAZOLE 500 MG in Premix Bag 1 BAG IVPB SCH ×3 (06:11→21:06)
[2017-10-21] MEDS: Chlorothiazide 50 MG/ML Oral Suspension PO SCH (08:59)
[2017-10-21] MEDS: Potassium Chloride 20 MEQ TAB PO SCH (09:01)
[2017-10-21] MEDS: Meloxicam 7.5 MG TAB PO SCH ×2 (09:01→21:07)
[2017-10-21] MEDS: Saccharomyces boulardii 250 MG CAP PO SCH (09:01)
[2017-10-21] MEDS: Famotidine 20 MG TAB PO SCH ×2 (09:01→21:07)
[2017-10-21] MEDS: Gabapentin 300 MG CAP PO SCH ×2 (09:01→21:06)
[2017-10-21] MEDS: Amlodipine 10 MG TAB PO SCH (09:02)
[2017-10-21] MEDS: Famotidine/PF 20 mg/2ml Vial SLOW IVP SCH ×2 (09:03→23:01)
[2017-10-21] MEDS: Tamsulosin HCl 0.4 MG CAP PO SCH (09:03)
[2017-10-21] MEDS: Levofloxacin 500 mg/D5W 100 ml Premix Bag IVPB SCH (13:31)
[2017-10-21] MEDS: HYDROcodone/Acetaminophen 10/325 mg Tablet PO PRN (21:27)
--- NOTE | 2017-10-22 00:13 | PRG ---
DATE OF SERVICE: 10/21/2017 SUBJECTIVE: The patient reports bloating has improved. His pain has improved, still some soreness a round the drainage tube site. OBJECTIVE: VITAL SIGNS: Temperature 99.4, heart rate 81, respiratory rate 18, 96%, 169/82. ABDOMEN: Soft, nondistended. Mildly tender near the drain site, but otherwise unremarkable. Incisi on is clean, dry, and intact. ASSESSMENT AND PLAN: A 67-year-old male with postop abscess. PLAN: Continue with drain and IV antibiotics. Follow up morning CBC. He is tolerating regular diet . Discharge planning.
[2017-10-22 04:23] LABS: #Eosinphils 0.1 thou/uL (0.0-0.7); #Lymphocytes 3.5 thou/uL (1.20-3.40); #Monocytes 1.2 thou/uL (0.11-0.59); #Neutrophils 14.3 thou/uL (1.40-6.50); %Basophils 0.1 % (0.0-1.0); %Eosinophils 0.8 % (0.0-10.0); %Lymphocytes 18.4 % (21.0-51.0); %Monocytes 6.4 % (0.0-10.0); %Neutrophils 74.3 % (42.0-75.0); Hemoglobin 12.5 g/dL (14.0-18.0); Mean Corpuscular HGB CONC 32.6 g/dL (32.0-36.0); Mean Corpuscular Hemoglobin 31.5 pg (27.0-31.0); Mean Corpuscular Volume 96.5 fl (80.0-94.0); Mean Platelet Volume 6.4 fL (7.4-10.4); Platelet Count 325 thou/uL (130-400); RBC Distribution Width 11.8 % (11.5-14.5); Red Blood Cell (RBC) Count 3.97 mill/uL (4.70-6.10); White Blood Cell (WBC) Count 19.2 thou/uL (4.8-10.8)
[2017-10-22] MEDS: metroNIDAZOLE 500 MG in Premix Bag 1 BAG IVPB SCH (05:45)
[2017-10-22] MEDS: Meloxicam 7.5 MG TAB PO SCH (09:19)
[2017-10-22] MEDS: Potassium Chloride 20 MEQ TAB PO SCH (09:20)
[2017-10-22] MEDS: Tamsulosin HCl 0.4 MG CAP PO SCH (09:20)
[2017-10-22] MEDS: Gabapentin 300 MG CAP PO SCH (09:20)
[2017-10-22] MEDS: Saccharomyces boulardii 250 MG CAP PO SCH (09:20)
[2017-10-22] MEDS: Famotidine 20 MG TAB PO SCH (09:20)
[2017-10-22] MEDS: Famotidine/PF 20 mg/2ml Vial SLOW IVP SCH (09:21)
[2017-10-22] MEDS: Amlodipine 10 MG TAB PO SCH (09:24)
[2017-10-22] MEDS: Chlorothiazide 50 MG/ML Oral Suspension PO SCH (09:25)
[2017-10-22] MEDS: Levofloxacin 500 mg/D5W 100 ml Premix Bag IVPB SCH (11:23)
[2017-10-22] MEDS ORDERED: traMADol HCl 50 MG TAB PO PRN ×2 (11:24)
[2017-10-22 12:17] VITALS: BP 139/79; TEMP 98.4
[2017-10-22] MEDS ORDERED: metroNIDAZOLE 500 MG TAB PO SCH (15:00)
--- NOTE | 2017-10-22 21:51 | DIS ---
DATE OF ADMISSION: 10/19/2017 DATE OF DISCHARGE: 10/22/2017 ADMITTING PHYSICIAN: Dr. Kirkland. DISCHARGING PHYSICIAN: Dr. Alcantar. ADMITTING DIAGNOSIS: Postoperative right lower quadrant abdominal abscess. DISCHARGE DIAGNOSIS: Postoperative right lower quadrant abdominal abscess. OPERATIONS PERFORMED: Percutaneous drainage of right lower quadrant abdominal abscess by CT guidance . HISTORY AND HOSPITAL COURSE: This is a 67-year-old gentleman, who is 1 week status post laparoscopic appendectomy for ruptured appendix. The patient presented to the emergency department 1 week post-d ischarge complaining of diarrhea and right lower quadrant abdominal pain associated with fever. CT s can of the abdomen and pelvis revealed a 4 x 5 cm fluid collection in the right lower quadrant operat wilson site. Abdominal abscess is diagnosed and patient underwent a CT-guided abscess drainage post-adm ission day. Antibiotics were then initiated at the same time. Microbiology of the specimen is posit wilson for Klebsiella, Enterobacter, Proteus mirabilis, and Streptococcus anginosus. The patient was pl aced on levofloxacin and metronidazole. He has tolerated that well. Post-admission day, #3, he is a mbulating with no difficulties at all. He denies any abdominal pain. He has been afebrile over the last 36 hours. The patient is tolerating general diet, having normal bowel and urinary function. He has therefore been discharged today with the following instructions with the drain in place. The regan jagdish follows up with me in the Surgery Clinic in 1 week with a [address] CT scan of the abdomen and pel vis. He is given a prescription for levofloxacin and metronidazole for a course of 10 days. He is t o call me with any questions or problems including exacerbation of abdominal pain, intolerance to ora l intake or any fever in excess of 101 degrees Fahrenheit. The patient indicates understanding of th e information I have provided him in the presence of his and his nurse at bedside. I have answe red his questions.
== END 2017-10-22 13:13 | disposition home or self-care (01) | DRG 862 ==
LOC: SCSER 09:51 → SURG B 13:36
PROVIDERS: ADMIT Surgery; ATTEND Surgery
PROC: 0W9G30Z Drainage of Peritoneal Cavity with Drainage Device, Percutaneous Approach (ICD-10-PCS; principal; 2017-10-20)
DX: T81.4XXA Infection following a procedure, initial encounter (principal); K65.1 Peritoneal abscess; B96.1 Klebsiella pneumoniae [K. pneumoniae] as the cause of diseases classified elsewhere; B96.4 Proteus (mirabilis) (morganii) as the cause of diseases classified elsewhere; Y83.8 Other surgical procedures as the cause of abnormal reaction of the patient, or of later complication, without mention of misadventure at the time of the procedure; B95.4 Other streptococcus as the cause of diseases classified elsewhere
CPT/HCPCS: 36415; 49020; 74177; 77002; 80048; 80053; 81003; 83690; 85025; 85060; 85610; 85730; 87070; 87205; 89051; 96361; 96365; 96368; 99152; 99153; C1729; J1956; J2250; J2550; J3010; S0028

== ENCOUNTER 2017-10-30 10:52 | Outpatient (CLI) | payer MEDICARE ==
--- NOTE | 2017-10-30 13:12 | CT ---
EXAM: ABDOMEN CT WITH CONTRAST PELVIC CT WITH CONTRAST: COMPARISON: 10/19/17. HISTORY: Drainage placed for periappendiceal abscess. Followup exam. Evaluate for residual abscess. TECHNIQUE: Abdomen and pelvic CT are performed with IV contrast. Enteric contrast was administered. Coronal re formatted images are submitted for interpretation. FINDINGS: Minimal atelectatic changes in the left and right lung base. Stable bleb in the right lung base. He art size is normal. No pericardial effusion. The descending thoracic aorta and abdominal aorta have a normal caliber. No periaortic fat stranding. Symmetric attenuation of the psoas muscles. No gastrohepatic, retrocrural, or periportal lymphadenopathy. The gallbladder is unremarkable. Intra- and extrahepatic portal vein is patent. Stable subcentimete r hypodensity in the right hepatic lobe. Spleen, pancreas, and adrenal glands have appropriate enhan cement. Stable cyst in the left kidney. Symmetric renal enhancement. Bilaterally, no obstructive uropathy. Redemonstration of percutaneous drainage catheter in the right lower quadrant. A small amount of flu id with peripheral enhancement is present at the tip of the catheter. This collection measures 1.7 x 1.5 cm. Small focus of air which may be contiguous with the catheter is noted, near the cecal apex. This small focus of air attenuation measures approximately 0.9 cm. Contrast opacifies the colon. There are diverticula. No diverticulitis. Nonspecific stranding of the right pericolic gutter. PELVIC CT: No mass, lymphadenopathy, free air, or free fluid. The urinary bladder is unremarkable. Stable degenerative changes of the lumbar spine. IMPRESSION: Interval decrease in size of a previously noted infected fluid collection in the right lower quadrant . A small amount of fluid and air did remain. POS: [facility]
== END 2017-10-30 10:53 | disposition home or self-care (01) ==
LOC: CT 10:52
PROVIDERS: ATTEND Surgery
DX: T81.4XXD Infection following a procedure, subsequent encounter (principal)
CPT/HCPCS: 74177

== ENCOUNTER 2019-01-06 10:51 | Outpatient (CLI) | payer MEDICARE ==
--- NOTE | 2019-01-06 12:27 | BD ---
BONE DENSITOMETRY USING DEXA: HISTORY: Postmenopausal screening for osteoporosis. FINDINGS: Lumbar Spine: BMD (g/cm2) L1 1.209 T-Score: 1.2 Z-Score: 2.0 L2 1.587 T-Score: 4.5 Z-Score: 5.4 L3 1.704 T-Score: 5.5 Z-Score: 6.4 L4 1.493 T-Score: 3.7 Z-Score: 4.6 L1-L4 1.500 T-Score: 3.7 Z-Score: 4.6 Femoral Neck: 0.851 T-Score:-0.6 Z-Score: 0.6 Total Femur: 1.231 T-Score: 1.3 Z-Score: 2.0 Impression: Normal bone mineral density. No evidence of osteopenia/osteoporosis. POS: [facility]
== END 2019-01-06 10:52 | disposition home or self-care (01) ==
LOC: BICMAMMO 10:51
PROVIDERS: ATTEND Family Medicine
DX: Z13.820 Encounter for screening for osteoporosis (principal)
CPT/HCPCS: 77080

== ENCOUNTER 2020-05-05 08:44 | Outpatient (CLI) | payer MEDICARE ==
--- NOTE | 2020-05-05 10:19 | MRI ---
EXAM: MRI of the pelvis/prostate without and with contrast HISTORY: Elevated PSA of 4.34 COMPARISON: None TECHNIQUE: Multiplanar multisequence MR images were obtained of the pelvis without and with IV contra st. Evaluation of this exam was performed with a [employer] [employer] workstation. FINDINGS: Central gland: Moderate hypertrophy of the central gland consistent with BPH. Prostate volume is unruly mated at 56 mL. No suspicious low T2 signal lesion is seen. Peripheral zone: There is a suspicious area of low T2 signal in the right peripheral zone of the pros forbes. This extends from the apex to the mid gland and measures 3.3 cm is in greatest dimension. This area demonstrates restricted diffusion and low signal on the ADC map. This area also has a washo ut-type curve Seminal vesicles: Intact without abnormality Neurovascular bundles: The right neurovascular bundle is in the vicinity of the right peripheral zone lesion described above. The left neurovascular bundle is intact. . Pelvic lymph nodes: No pelvic adenopathy Other visualized intrapelvic structures: Unremarkable Osseous structures: No marrow signal abnormality IMPRESSION: PI-RADS Category 5-very high likelihood that a clinically significant cancer is present.
== END 2020-05-05 08:45 | disposition home or self-care (01) ==
LOC: TBSIIMAG 08:44
PROVIDERS: ATTEND Urology
DX: R97.20 Elevated prostate specific antigen [PSA] (principal)
CPT/HCPCS: 72197; 82565

== ENCOUNTER 2020-06-27 06:29 | Outpatient (CLI) | payer MEDICARE, OTHER ==
--- NOTE | 2020-06-27 15:50 | RAD ---
XR Chest Pa Lat STANDARD HISTORY: Preoperative evaluation. Prostate cancer COMPARISON: None FINDINGS: The heart size is normal. The lungs are well expanded without focal areas of consolidation, pneumothorax or pleural effusions. IMPRESSION: No radiographic evidence of acute cardiopulmonary process.
[2020-06-27 18:19] LABS: Hemoglobin 15.2 g/dL (14.0-18.0); Mean Corpuscular HGB CONC 34.1 g/dL (32.0-36.0); Mean Platelet Volume 8.9 fL (7.4-10.4); Platelet Count 264 thou/uL (130-400); RBC Distribution Width 11.4 % (11.5-14.5); Red Blood Cell (RBC) Count 4.61 mill/uL (4.70-6.10); White Blood Cell (WBC) Count 8.1 thou/uL (4.8-10.8)
[2020-06-27 18:26] LABS: Bacteria/HPF None Seen HPF (None Seen); Bilirubin Negative (Negative); Blood, Urine Negative (Negative); Clarity Clear (Clear); Glucose, Urine (Dipstick) Normal (Negative); Ketone, Urine Negative (Negative); Leukocyte Negative Leu/uL (Negative); Nitrite Negative (Negative); Protein, Urine (Dipstick) Negative (Neg-Trace); RBC/HPF 0-3 HPF (0-3); Specific Gravity, Urine 1.009 (1.002-1.036); Squamous Epithelial None Seen HPF (0-3); Urobilinogen Normal mg/dL (Less than 2); WBC/HPF 0-3 HPF (0-3)
[2020-06-27 18:32] LABS: INR-International Normal Ratio 0.9; PTT 30.9 sec (22.9-36.1); Prothrombin Time 11.9 sec (12.0-14.7)
[2020-06-27 18:54] LABS: Anion Gap 16 mmol/L (10-20); BUN (Urea Nitrogen) 18 mg/dL (8.4-25.7); Calc. Creatinine Clearance 0 mL/min (70-130); Calcium 9.5 mg/dL (7.8-10.44); Carbon Dioxide 24 mmol/L (23-31); Chloride 103 mmol/L (98-107); Estimated GFR-MDRD 70; Glucose 96 mg/dL (83-110); Potassium 4.2 mmol/L (3.5-5.1); Sodium 139 mmol/L (136-145)
[2020-06-28 13:23] LABS: SARS-CoV-2 MS2 Positive; SARS-CoV-2 N Gene Negative; SARS-CoV-2 S Gene Negative; SARS-CoV-2 by NAA Not Detected (NotDetected); SARS-CoV-2 orf1ab Negative
== END 2020-06-27 06:30 | disposition home or self-care (01) ==
LOC: LABBT 06:29 → SCSRAD 06:30
PROVIDERS: ATTEND Urology
DX: Z01.818 Encounter for other preprocedural examination (principal); Z20.828 Contact with and (suspected) exposure to other viral communicable diseases; C67.0 Malignant neoplasm of trigone of bladder; R97.20 Elevated prostate specific antigen [PSA]; N40.1 Benign prostatic hyperplasia with lower urinary tract symptoms; I10 Essential (primary) hypertension
CPT/HCPCS: 71046; 80048; 81001; 85027; 85610; 85730; 87086; 87635; 93005; 93010; U0003

== ENCOUNTER 2020-06-30 07:08 | Day surgery (SDC) | payer MEDICARE ==
[2020-06-29 11:17] VITALS: BMI 33.2
[2020-06-30] MEDS ORDERED: cefTRIAXone\\ROCEPHIN 2 GM VIAL ONE (08:04)
[2020-06-30] MEDS ORDERED: Sodium Chloride 0.9% 100 ML ONE (08:04)
[2020-06-30] MEDS ORDERED: Fentanyl 100 MCG/2 ML VIAL ONE (09:12)
[2020-06-30] MEDS ORDERED: Propofol 500 MG/50 ML VIAL ONE (09:12)
[2020-06-30] MEDS ORDERED: Lidocaine 1% PF 5 ML VIAL ONE (09:56)
--- NOTE | 2020-06-30 14:08 | OP ---
DATE OF PROCEDURE: 06/30/2020 SERVICE: Urology. PREOPERATIVE DIAGNOSIS: Elevated PSA. POSTOP DIAGNOSIS: Elevated PSA. PROCEDURE PERFORMED: MRI fusion biopsy. INDICATIONS FOR PROCEDURE: Mr. Bush is a 70-year-old white male with an elevated PSA of around 4.4. He had an MRI done, which demonstrated a BI-RADS 5 lesion along the patient's right prostate. I recommended MRI fusion biopsy with risks and benefits explained and he has agreed to proceed forward. DESCRIPTION OF PROCEDURE: After identification of armband and verification of consent, the patient was brought back to the operating room where he underwent total intravenous anesthesia. He was placed in the left lateral decubitus position and prepped and draped in the usual sterile fashion. The ultrasound probe was initially lined up with the [facility] into the patient's rectum. There was no interference with any surrounding metal. A sweep was used to capture the imaging and the MRI fusion process was then carried out in standard process until there was good alignment with the prostate from the ultrasound and the MRI imaging. Once fusion had been completed, 4 biopsies were taken from the area of concern, which was relatively large along the right aspect of the prostate. Once the biopsies were completed, ultrasound measurements were taken of the prostate, which demonstrated a length of 4.4 cm, a width of 5.5 cm, and a height of 3.7 cm for a total volume of 46.4 cm cube. The standard 12-core biopsies were then taken in the usual sextant fashion. A total of 16 prostate biopsies taken. Upon completion, bleeding was noted to be minimal. The ultrasound probe was removed. The patient was then returned back to the supine position, awakened, and taken to the Day Stay for recovery. COMPLICATIONS: None. ESTIMATED BLOOD LOSS: Minimal. RETAINED TUBES AND DRAINS: None. SPECIMENS: Prostate biopsies x16. DISPOSITION: The patient will be discharged home and follow up with me in approximately 1 to 2 weeks for biopsy results and postop check. Job ID: [id number]
== END 2020-06-30 11:40 | disposition home or self-care (01) ==
LOC: SDC 07:08
PROVIDERS: ATTEND Urology
PROC: 0VB03ZX Excision of Prostate, Percutaneous Approach, Diagnostic (ICD-10-PCS; principal; 2020-06-30)
DX: C61 Malignant neoplasm of prostate (principal); N41.1 Chronic prostatitis; N42.89 Other specified disorders of prostate; N40.1 Benign prostatic hyperplasia with lower urinary tract symptoms; I10 Essential (primary) hypertension; Z85.51 Personal history of malignant neoplasm of bladder; Z79.1 Long term (current) use of non-steroidal anti-inflammatories (NSAID); Z79.82 Long term (current) use of aspirin; Z79.899 Other long term (current) drug therapy
CPT/HCPCS: 88305; J0696; J2704; J3010; J3490

== ENCOUNTER 2020-07-27 10:25 | Outpatient (CLI) | payer MEDICARE ==
--- NOTE | 2020-07-27 14:31 | NM ---
EXAM: NM Bone Scan STANDARD PROVIDED CLINICAL HISTORY: Malignant neoplasm of prostate gland. COMPARISON: None FINDINGS: There is horizontal linear area of increased uptake seen involving the mid lumbar spine. This may be related to prominent endplate degenerative changes which were seen involving the lumbar spine on a CT abdomen and pelvis on 10/30/2017. Focus of increased activity is seen overlying the region of the l eft maxilla which may represent sinus disease. No additional abnormal areas of increased uptake of radiotracer are seen in the visualized appendicular or axial skeleton. Expected activity is seen in e ach kidney and in the urinary bladder. IMPRESSION: 1. No scintigraphic findings to suggest osseous metastatic disease. 2. Horizontal linear area of increased uptake of radiotracer in the mid lumbar spine likely reflectiv e of degenerative changes which were seen on a CT examination in 2018.
== END 2020-07-27 10:26 | disposition home or self-care (01) ==
LOC: NM 10:25
PROVIDERS: ATTEND Urology
DX: C61 Malignant neoplasm of prostate (principal)
CPT/HCPCS: 78306; A9503

== ENCOUNTER 2020-10-10 09:00 | Inpatient (IN) | payer MEDICARE ==
[2020-12-05 17:46] LABS: SARS-CoV-2 PCR by NAA Not Detected (NotDetected)
[2020-12-07 12:10] VITALS: BMI 30.7
[2020-12-08] MEDS ORDERED: Gentamicin 80 MG/2 ML VIAL ONE (08:17)
[2020-12-08] MEDS ORDERED: Sodium Chloride 0.9% 0 ML ONE (08:17)
[2020-12-08] MEDS ORDERED: Midazolam HCl 2 mg/2 ml Vial ONE (08:18)
[2020-12-08] MEDS ORDERED: Fentanyl 100 MCG/2 ML VIAL ONE ×2 (08:18→16:43)
[2020-12-08] MEDS ORDERED: HYDROmorphone 2 MG/ML VIAL ONE (10:01)
[2020-12-08] MEDS ORDERED: Ketamine 50 MG/ML (10ML VIAL) ONE (10:01)
[2020-12-08] MEDS ORDERED: Lidocaine 1% w/Epinephrine 1:100K 20 ML VIAL ONE (10:09)
[2020-12-08] MEDS ORDERED: XYLOCAINE 2%-EPI 1:100,000 20 ML VIAL ONE (10:09)
[2020-12-08] MEDS ORDERED: Bupivacaine 0.25% HCL 30 ML VIAL ONE (10:09)
[2020-12-08] MEDS ORDERED: B & O ONE (10:13)
[2020-12-08] MEDS ORDERED: Ondansetron PF 4 MG/2 ML Vial ONE (10:28)
[2020-12-08] MEDS ORDERED: PHENYLEPHRINE-NS 100 MCG/ML 10 ML SYRINGE ONE (10:28)
[2020-12-08] MEDS ORDERED: PROPOFOL 200 MG/20 ML VIAL ONE (10:28)
[2020-12-08] MEDS ORDERED: ePHEDrine 50 MG/ML VIAL ONE (10:28)
[2020-12-08] MEDS ORDERED: Succinylcholine 200 MG/10 ml SYRINGE FS ONE (10:28)
[2020-12-08] MEDS ORDERED: Lidocaine 1% PF 5 ML VIAL ONE (10:28)
[2020-12-08] MEDS ORDERED: Rocuronium Bromide 10 MG/ML (10ML VIAL) ONE (10:28)
[2020-12-08] MEDS ORDERED: Glycopyrrolate 0.2 MG/ML 5 ML SYRINGE ONE (10:28)
[2020-12-08] MEDS ORDERED: Bupivacaine HCl 0.5%/Epinephrine 1:200,000/PF 30 ml Vial ONE (10:28)
[2020-12-08] MEDS ORDERED: Dexamethasone 20 MG/5 ML VIAL ONE (10:28)
[2020-12-08] MEDS ORDERED: Albumin 5% 500 ML ONE (13:24)
[2020-12-08] MEDS ORDERED: Ondansetron HCl/PF 4 MG/2 ML Vial IVP PRN (16:35)
[2020-12-08] MEDS ORDERED: Promethazine HCl 25 MG/ML VIAL IM/IV PRN (16:35)
[2020-12-08] MEDS ORDERED: Oxybutynin 5 MG TAB PO PRN (16:52)
[2020-12-08] MEDS ORDERED: hydrALAZINE 20 MG/ML VIAL SLOW IVP PRN (16:52)
[2020-12-08] MEDS ORDERED: Mag-Al 1200 mg/1200 mg/30 ML UDCUP PO PRN (16:52)
[2020-12-08] MEDS ORDERED: Sodium Chloride 0.9% 1,000 ML IV SCH (16:52)
[2020-12-08] MEDS ORDERED: oxyCODONE 5 MG TAB PO PRN ×2 (16:52)
[2020-12-08] MEDS ORDERED: Ondansetron PF 4 MG/2 ML Vial IVP PRN (16:52)
[2020-12-08] MEDS ORDERED: Fentanyl 100 MCG/2 ML VIAL SLOW IVP PRN (16:52)
[2020-12-08] MEDS ORDERED: Acetaminophen 500 MG TAB PO SCH ×2 (16:52→18:00)
[2020-12-08] MEDS ORDERED: diphenhydrAMINE 25 MG CAP PO PRN (16:52)
[2020-12-08] MEDS ORDERED: Hyoscyamine Sulfate SL 0.125 mg Tablet SL PRN (16:52)
[2020-12-08] MEDS ORDERED: Non-Formulary Medication 1 EACH PO PRN (16:59)
[2020-12-08 18:09] LABS: Hemoglobin 13.5 g/dL (14.0-18.0); Mean Corpuscular HGB CONC 33.4 g/dL (32.0-36.0); Mean Corpuscular Volume 95.9 fL (78.0-98.0); Mean Platelet Volume 7.8 fL (7.4-10.4); Platelet Count 227 thou/uL (130-400); RBC Distribution Width 11.5 % (11.5-14.5); Red Blood Cell (RBC) Count 4.21 mill/uL (4.70-6.10); White Blood Cell (WBC) Count 13.2 thou/uL (4.8-10.8)
[2020-12-08 18:17] LABS: Anion Gap 15 mmol/L (10-20); BUN (Urea Nitrogen) 16 mg/dL (8.4-25.7); Calc. Creatinine Clearance 91 mL/min (70-130); Calcium 8.4 mg/dL (7.8-10.44); Carbon Dioxide 20 mmol/L (23-31); Chloride 108 mmol/L (98-107); Glucose 179 mg/dL (83-110); Potassium 3.8 mmol/L (3.5-5.1); Sodium 139 mmol/L (136-145)
[2020-12-08] MEDS: traMADol HCl 50 MG TAB PO SCH (18:54)
[2020-12-08] MEDS: Acetaminophen 500 MG TAB PO SCH ×2 (18:55→22:02)
[2020-12-08] MEDS: Ketorolac Tromethamine 30 MG/ML VIAL IVP SCH (18:55)
[2020-12-08] MEDS: cefOXitin 1.5 GM in Sodium Chloride 0.9% 100 ML IVPB SCH (18:56)
[2020-12-08] MEDS: Docusate 100 MG CAP PO SCH (20:31)
[2020-12-08] MEDS: Gabapentin 300 MG CAP PO SCH (20:31)
[2020-12-09] MEDS: traMADol HCl 50 MG TAB PO SCH ×3 (00:04→12:13)
[2020-12-09] MEDS: Ketorolac Tromethamine 30 MG/ML VIAL IVP SCH ×3 (00:05→12:14)
[2020-12-09] MEDS: Acetaminophen 500 MG TAB PO SCH ×3 (01:55→11:12)
[2020-12-09] MEDS: cefOXitin 1.5 GM in Sodium Chloride 0.9% 100 ML IVPB SCH ×2 (01:56→11:11)
[2020-12-09 06:18] LABS: #Lymphocytes 1.4 thou/uL (1.20-3.40); #Monocytes 0.9 thou/uL (0.11-0.59); #Neutrophils 10.3 thou/uL (1.40-6.50); %Lymphocytes 11.4 % (21.0-51.0); %Monocytes 7.1 % (0.0-10.0); %Neutrophils 81.4 % (42.0-75.0); Hemoglobin 12.5 g/dL (14.0-18.0); Mean Corpuscular HGB CONC 33.8 g/dL (32.0-36.0); Mean Corpuscular Hemoglobin 32.6 pg (27.0-31.0); Mean Corpuscular Volume 96.4 fL (78.0-98.0); Platelet Count 226 thou/uL (130-400); RBC Distribution Width 11.6 % (11.5-14.5); Red Blood Cell (RBC) Count 3.85 mill/uL (4.70-6.10); White Blood Cell (WBC) Count 12.6 thou/uL (4.8-10.8)
[2020-12-09 06:40] LABS: Anion Gap 13 mmol/L (10-20); BUN (Urea Nitrogen) 17 mg/dL (8.4-25.7); Calc. Creatinine Clearance 110 mL/min (70-130); Carbon Dioxide 23 mmol/L (23-31); Chloride 106 mmol/L (98-107); Glucose 122 mg/dL (83-110); Sodium 138 mmol/L (136-145)
[2020-12-09] MEDS: Docusate 100 MG CAP PO SCH (08:22)
[2020-12-09] MEDS: Gabapentin 300 MG CAP PO SCH (08:22)
[2020-12-09] MEDS ORDERED: Amlodipine 10 MG TAB PO SCH (09:00)
[2020-12-09] MEDS ORDERED: Lisinopril/Hydrochlorothiazide 10 mg/12.5 mg Tablet PO SCH (09:00)
[2020-12-09] MEDS ORDERED: Fluticasone Propionate Nasal Spray 16 gm Bottle NASAL SCH (09:00)
[2020-12-09 11:40] VITALS: BP 123/73; TEMP 97.5
== END 2020-12-09 13:31 | disposition home or self-care (01) | DRG 708 ==
LOC: SURG A 12-08 06:52 → SURG B 12-08 17:38
PROVIDERS: ADMIT Urology; ATTEND Urology
PROC: 0VT04ZZ Resection of Prostate, Percutaneous Endoscopic Approach (ICD-10-PCS; principal; 2020-12-08)
PROC: 0VT34ZZ Resection of Bilateral Seminal Vesicles, Percutaneous Endoscopic Approach (ICD-10-PCS; 2020-12-08)
PROC: 07BC4ZZ Excision of Pelvis Lymphatic, Percutaneous Endoscopic Approach (ICD-10-PCS; 2020-12-08)
PROC: 0VTQ4ZZ Resection of Bilateral Vas Deferens, Percutaneous Endoscopic Approach (ICD-10-PCS; 2020-12-08)
PROC: 8E0W4CZ Robotic Assisted Procedure of Trunk Region, Percutaneous Endoscopic Approach (ICD-10-PCS; 2020-12-08)
DX: C61 Malignant neoplasm of prostate (principal); Z20.822 Contact with and (suspected) exposure to COVID-19; M19.90 Unspecified osteoarthritis, unspecified site; I10 Essential (primary) hypertension; Z79.899 Other long term (current) drug therapy
CPT/HCPCS: 36415; 80048; 85025; 85027; 86850; 86900; 86901; 87635; 88309; 93005; J0690; J0694; J1100; J1170; J1580; J1885; J2250; J2405; J2704; J3010; J3490; P9045; S0020; U0003; U0005

== ENCOUNTER 2020-12-05 09:39 | Outpatient (CLI) | payer MEDICARE | END 2020-12-05 09:40 | disposition home or self-care (01) | LOC: LABBT 09:39 | PROVIDERS: ATTEND Family Medicine | DX: Z01.810 Encounter for preprocedural cardiovascular examination (principal); C61 Malignant neoplasm of prostate | CPT/HCPCS: 93005; 93010 ==

== ENCOUNTER 2023-01-15 11:22 | Outpatient (CLI) | payer MEDICARE ==
[2023-01-15 12:09] LABS: INR-International Normal Ratio 0.9; PTT 27.8 sec (22.0-33.0); Prothrombin Time 10.2 sec (9.5-12.1)
[2023-01-15 12:11] LABS: Hemoglobin 14.8 g/dL (13.5-17.5); Mean Corpuscular HGB CONC 34.7 g/dL (32.0-36.0); Mean Corpuscular Hemoglobin 31.8 pg (27.0-33.0); Mean Corpuscular Volume 91.6 fl (81.2-95.1); Mean Platelet Volume 9.8 fl (7.4-10.4); Platelet Count 278 10x3/uL (150-450); RBC Distribution Width 12.7 % (11.5-14.5); Red Blood Cell (RBC) Count 4.65 10x6/uL (4.32-5.72); White Blood Cell (WBC) Count 5.7 10x3/uL (3.5-10.5)
[2023-01-15 12:45] LABS: Anion Gap 15 mmol/L (10-20); BUN (Urea Nitrogen) 22 mg/dL (8.4-25.7); Calc. Creatinine Clearance 0 mL/min (70-130); Calcium 9.2 mg/dL (7.8-10.44); Carbon Dioxide 23 mmol/L (23-31); Chloride 102 mmol/L (98-107); Estimated GFR 78; Glucose 99 mg/dL (83-110); Sodium 136 mmol/L (136-145)
== END 2023-01-15 11:23 | disposition home or self-care (01) ==
LOC: LABBT 11:22
PROVIDERS: ATTEND Surgery
DX: Z01.818 Encounter for other preprocedural examination (principal); M54.16 Radiculopathy, lumbar region; M48.061 Spinal stenosis, lumbar region without neurogenic claudication
CPT/HCPCS: 80048; 85027; 85610; 85730; 93005; 93010

== ENCOUNTER 2023-01-18 05:51 | Observation (INO) | payer MEDICARE ==
[2023-01-17 09:24] VITALS: BMI 33.2
[2023-01-18] MEDS ORDERED: Vancomycin 1 GM VIAL ONE (06:27)
[2023-01-18] MEDS ORDERED: Thrombin 5000 UNITS/5 ML VIAL ONE (06:27)
[2023-01-18] MEDS ORDERED: Fentanyl 250 MCG/5 ML VIAL ONE ×2 (06:41→10:08)
[2023-01-18] MEDS ORDERED: HYDROmorphone 0.5 MG/0.5 ML SYRINGE ONE ×2 (06:41→10:08)
[2023-01-18] MEDS ORDERED: SUGAMMADEX SODIUM 200 MG/2 ML VIAL ONE (06:42)
[2023-01-18] MEDS ORDERED: Dexmedetomidine 200 MCG/2 ML VIAL ONE (06:42)
[2023-01-18] MEDS ORDERED: Rocuronium Bromide 10 MG/ML (10ML VIAL) ONE (07:14)
[2023-01-18] MEDS ORDERED: Lidocaine 1% PF 5 ML VIAL ONE (07:14)
[2023-01-18] MEDS ORDERED: ePHEDrine Sulfate 50 MG/10 ML VIAL ONE (07:14)
[2023-01-18] MEDS ORDERED: Dexamethasone 20 MG/5 ML VIAL ONE (07:14)
[2023-01-18] MEDS ORDERED: Phenylephrine 10 MG/ML VIAL ONE (07:14)
[2023-01-18] MEDS ORDERED: Ondansetron PF 4 MG/2 ML Vial ONE (07:14)
[2023-01-18] MEDS ORDERED: PROPOFOL 200 MG/20 ML VIAL ONE (07:14)
[2023-01-18] MEDS ORDERED: CEFAZOLIN 2 GM VIAL ONE (07:22)
[2023-01-18] MEDS ORDERED: Sodium Chloride 0.9% 100 ML ONE (07:22)
[2023-01-18] MEDS ORDERED: traMADol HCl 50 MG TAB PO PRN (10:35)
[2023-01-18] MEDS ORDERED: Acetaminophen 325 MG TAB PO PRN (10:35)
[2023-01-18] MEDS ORDERED: Morphine 2 MG/ML VIAL SLOW IVP PRN (10:35)
[2023-01-18] MEDS ORDERED: Ondansetron PF 4 MG/2 ML Vial IVP PRN (10:35)
[2023-01-18] MEDS ORDERED: Ketorolac Tromethamine 30 MG/ML VIAL IVP PRN (10:35)
[2023-01-18] MEDS ORDERED: tiZANidine HCl 4 MG TAB PO PRN (10:38)
[2023-01-18] MEDS ORDERED: hydrALAZINE 20 MG/ML VIAL SLOW IVP PRN (10:38)
[2023-01-18] MEDS ORDERED: Ketorolac Tromethamine 30 MG/ML VIAL ONE (11:00)
[2023-01-18] MEDS: Acetaminophen/Codeine 30-300mg Tablet PO PRN ×2 (12:15→20:38)
[2023-01-18] MEDS: Sodium Chloride 0.9% 1,000 ML IV SCH (12:16)
[2023-01-18] MEDS: CEFAZOLIN 2 GM in Sodium Chloride 0.9% 100 ML IVPB SCH ×2 (13:08→20:37)
[2023-01-18] MEDS: HYDROcodone/Acetaminophen 7.5/325 mg Tablet PO PRN (16:00)
[2023-01-18] MEDS: Gabapentin 300 MG CAP PO SCH (20:38)
[2023-01-19] MEDS: Sodium Chloride 0.9% 1,000 ML IV SCH (00:38)
[2023-01-19] MEDS: HYDROcodone/Acetaminophen 7.5/325 mg Tablet PO PRN (04:52)
[2023-01-19] MEDS: Gabapentin 300 MG CAP PO SCH (08:43)
[2023-01-19 08:45] VITALS: BP 144/73
[2023-01-19] MEDS: Acetaminophen/Codeine 30-300mg Tablet PO PRN (08:48)
[2023-01-19] MEDS ORDERED: Oxybutynin ER 5 MG TAB PO SCH (09:00)
[2023-01-19] MEDS ORDERED: Non-Formulary Item 1 EACH (Oxybutynin Chloride [Ditropan Xl] 10 MG Tab.Er.24) PO SCH (09:00)
[2023-01-19] MEDS ORDERED: Lisinopril/Hydrochlorothiazide 10 mg/12.5 mg Tablet PO SCH (09:00)
[2023-01-19] MEDS ORDERED: Potassium Chloride 20 MEQ TAB PO SCH (09:00)
[2023-01-19] MEDS ORDERED: Amlodipine 10 MG TAB PO SCH (09:00)
[2023-01-19 09:14] VITALS: TEMP 98.4
== END 2023-01-19 09:50 | disposition home or self-care (01) ==
LOC: SDC 05:51 → SURG A 11:56
PROVIDERS: ADMIT Surgery; ATTEND Surgery
PROC: 01NB0ZZ Release Lumbar Nerve, Open Approach (ICD-10-PCS; principal; 2023-01-18)
DX: M48.062 Spinal stenosis, lumbar region with neurogenic claudication (principal); M41.9 Scoliosis, unspecified; M51.16 Intervertebral disc disorders with radiculopathy, lumbar region; Z79.899 Other long term (current) drug therapy
CPT/HCPCS: J1100; J1170; J1885; J2370; J2405; J2704; J3010; J3370; J3490; J7050

== ENCOUNTER 2023-09-27 09:46 | Outpatient (CLI) | payer MEDICARE | END 2023-09-27 09:47 | disposition home or self-care (01) | LOC: SCSMRI 09:46 | PROVIDERS: ATTEND Nurse Practitioner Family | DX: M47.26 Other spondylosis with radiculopathy, lumbar region (principal); M41.9 Scoliosis, unspecified; M47.815 Spondylosis without myelopathy or radiculopathy, thoracolumbar region; M47.817 Spondylosis without myelopathy or radiculopathy, lumbosacral region; Z98.890 Other specified postprocedural states | CPT/HCPCS: 72100; 72148 ==